=== PATIENT | male | born 1980 | race Caucasian/White ===

== ENCOUNTER 2021-06-02 05:00 | Day surgery (SDC) | payer OTHER ==
[2021-05-31 11:34] VITALS: BMI 35.9
[2021-06-02 10:12] VITALS: TEMP 97.8
[2021-06-02 10:53] VITALS: BP 114/66; PULSE 64
== END 2021-06-02 11:00 | disposition home or self-care (01) ==
LOC: JASU-ENDO 05:00
PROVIDERS: ATTEND Internal Medicine Gastroenterology
PROC: 0DBL8ZX Excision of Transverse Colon, Via Natural or Artificial Opening Endoscopic, Diagnostic (ICD-10-PCS; 2021-06-02)
PROC: 0DBP8ZX Excision of Rectum, Via Natural or Artificial Opening Endoscopic, Diagnostic (ICD-10-PCS; 2021-06-02)
PROC: 0DBK8ZX Excision of Ascending Colon, Via Natural or Artificial Opening Endoscopic, Diagnostic (ICD-10-PCS; principal; 2021-06-02 10:00)
DX: Z12.11 Encounter for screening for malignant neoplasm of colon (principal); Z86.010 Personal history of colon polyps; D12.2 Benign neoplasm of ascending colon; D12.3 Benign neoplasm of transverse colon; K62.1 Rectal polyp; Z83.71 Family history of colonic polyps
CPT/HCPCS: 88305-TC